=== PATIENT | female | born 1945 | race Caucasian/White ===

== ENCOUNTER 2019-02-10 02:21 | Observation (INO) | payer MEDICARE ==
[2019-02-10 02:54] LABS: #Basophils 0.1 thou/uL (0.0-0.2); #Eosinphils 0.1 thou/uL (0.0-0.7); #Lymphocytes 1.5 thou/uL (1.20-3.40); #Monocytes 0.5 thou/uL (0.11-0.59); #Neutrophils 3.9 thou/uL (1.40-6.50); %Basophils 1.4 % (0.0-1.0); %Eosinophils 2.3 % (0.0-10.0); %Lymphocytes 24.1 % (21.0-51.0); %Monocytes 8.2 % (0.0-10.0); %Neutrophils 63.9 % (42.0-75.0); Hemoglobin 14.9 g/dL (12.0-16.0); Mean Corpuscular HGB CONC 32.8 g/dL (32.0-36.0); Mean Corpuscular Hemoglobin 29.3 pg (27.0-31.0); Mean Corpuscular Volume 89.3 fL (78.0-98.0); Platelet Count 207 thou/uL (130-400); RBC Distribution Width 12.4 % (11.5-14.5); Red Blood Cell (RBC) Count 5.08 mill/uL (4.20-5.40); White Blood Cell (WBC) Count 6.1 thou/uL (4.8-10.8)
[2019-02-10] MEDS ORDERED: Aspirin Chewable 81 MG TAB ONE (03:03)
[2019-02-10] MEDS ORDERED: Nitroglycerin 0.4 MG TAB 1 EACH ONE (03:03)
[2019-02-10 03:19] LABS: ALT (SGPT) 16 U/L (8-55); AST (SGOT) 17 U/L (5-34); Albumin 4.7 g/dL (3.4-4.8); Alkaline Phosphatase 74 U/L (40-150); Anion Gap 14 mmol/L (10-20); BUN (Urea Nitrogen) 14 mg/dL (9.8-20.1); Bilirubin, Total 0.6 mg/dL (0.2-1.2); CK (CPK) 153 U/L (29-168); Calc. Creatinine Clearance 0 mL/min (70-130); Calcium 10.9 mg/dL (7.8-10.44); Carbon Dioxide 27 mmol/L (23-31); Chloride 105 mmol/L (98-107); Estimated GFR-MDRD 66; Globulin 2.5 g/dL (2.4-3.5); Glucose 129 mg/dL (83-110); Lipase 59 U/L (8-78); Potassium 3.8 mmol/L (3.5-5.1); Protein, Total 7.2 g/dL (6.0-8.3); Sodium 142 mmol/L (136-145)
[2019-02-10] MEDS ORDERED: Acetaminophen 325 MG TAB ONE (05:55)
[2019-02-10 06:24] LABS: Troponin I Less than 0.010 ng/mL (< 0.028)
--- NOTE | 2019-02-10 07:36 | RAD ---
XR Chest 1 View Portable History: [Chest pain] Comparison: None. Findings: There is be a retrocardiac density likely a sliding hiatal hernia. No pneumothorax. Lungs a re hyperinflated. No focal consolidation or effusion. No acute osseous abnormality. Impression: Findings suggestive of a large sliding hiatal hernia.
[2019-02-10] MEDS ORDERED: HYDROcodone/Acetaminophen 7.5/325 mg Tablet PO PRN (07:40)
[2019-02-10] MEDS ORDERED: Ondansetron ODT 4 MG TAB PO PRN (07:40)
[2019-02-10] MEDS ORDERED: Acetaminophen 325 MG TAB PO PRN (07:40)
--- NOTE | 2019-02-10 08:25 | HP ---
HISTORY OF PRESENT ILLNESS: [facility] call admission for [facility]. The patient referred to the [facility]ist [facility] by [facility] for chest pain. The patient started having chest pain 4-5 days ago. She is vague on a description. She says it is just a bad hurt. It is worse at night. It has been coming and going. She gives no radiation except possibly some left shoulder pain with it. No shortness of breath. No sweats. She definitely does not give me a history of pressure chest pain. She was seen and evaluated in the emergency room and referred. PAST MEDICAL HISTORY: She has a past medical history of hypertension. She takes amlodipine 5 mg twice a day. ALLERGIES: SHE HAS NO KNOWN DRUG ALLERGIES. PAST SURGICAL HISTORY: Hysterectomy, cholecystectomy, appendectomy, and ovarian cyst surgery at about 21 years of age. FAMILY HISTORY: Her mother had coronary artery disease late in life over 80s. Father of pancreatic cancer. SOCIAL HISTORY: , at bedside, DNAR status, confirmed by who is the next of kin for decision making. No tobacco. Occasional wine. REVIEW OF SYSTEMS: GENERAL: No headaches, dizziness or fainting. EYES: No double vision, blurred vision or flashing lights. EAR AND NOSE AND THROAT: No ear pain or drainage. She states she often hears her heart beating in her ear at night and when she gets up and checks, her blood pressure is elevated. No nose bleeding. No trouble swallowing. CARDIAC: No pressure chest pain. No orthopnea. RESPIRATION: No cough, wheezing or asthma. GASTROINTESTINAL: She states she had dry heaves last night. GENITOURINARY: No hematuria or dysuria. MUSCULOSKELETAL: She states she has occasional leg swelling. She has no history of pain. NEUROLOGICAL: No strokes, seizures, or focal weakness. PSYCHIATRIC: No anxiety or depression. SKIN: She states she bruises easily. No significant rash. HEME/LYMPH: No tender or swollen lymph nodes in axilla, inguinal or cervical area. PHYSICAL EXAMINATION: GENERAL: She is alert, pleasant, cooperative lady in no distress. VITAL SIGNS: Blood pressure 132/70, pulse 68, respirations 18. She rates her pain as 5-10 while she has been here, room air saturations are 98%. HEENT: Examination of her head, eyes, ears, nose, and throat reveals pupils are equal, round, and reactive to light. Extraocular movements are intact. Sclerae are white. Tympanic membranes clear. Nose clear. Throat is clear. Dental hygiene is adequate. NECK: Supple without jugular venous distention, adenopathy or thyromegaly. CHEST: Clear to auscultation and percussion. HEART: Regular rate and rhythm. First and second heart sounds are clear. There are no murmurs or gallops. ABDOMEN: Soft. Bowel sounds are normal. No hepatosplenomegaly. No masses. No rebound. Abdominal exam was mildly tender in the left upper quadrant. No other changes. EXTREMITIES: Reveal no cyanosis, clubbing, or edema. PULSES: Carotid, radial, femoral, and dorsalis pedis pulses intact. SKIN: Warm and dry. She has an area just to the left of her spine about T6. It is about 1 cm2 erythematous area that is remarkably tender to light touch. There is no other significant lesion or tenderness in that particular dermatome. LYMPHATIC SURVEY: No tender or swollen lymph nodes in axilla, inguinal or cervical area. No petechial hemorrhages on her fingernails or mucous membranes. NEUROLOGICAL: Cranial nerves 2 through 12 are intact. Deep tendon reflexes grossly symmetric. DIAGNOSTIC STUDIES: EKG; normal reviewed by me. LABORATORY DATA: Comprehensive metabolic profile shows a blood sugar of 129, calcium of 10.9, otherwise normal. Cardiac enzymes normal x2. CBC is unremarkable. Chest x-ray; no cardiomegaly, CHF or infiltrate reviewed by me. ADMITTING DIAGNOSES: Atypical chest pain and hypertension. PLAN: Serial enzymes, exercise Cardiolite stress test. The patient has been given aspirin. I am suspicious #1 herpes zoster in the left about T6 and we will start her on Valtrex 1 g t.i.d. The other significant consideration is gastroesophageal reflux and esophagitis and we will start her on Protonix 40 mg a day. We will review as data becomes available. Job ID: [id number]
[2019-02-10] MEDS ORDERED: ADENOSINE 60 MG/20 ML VIAL ONE (11:38)
[2019-02-10] MEDS: valACYclovir 500 MG TAB PO SCH ×2 (12:06→14:54)
--- NOTE | 2019-02-10 12:18 | NM ---
MYOCARDIAL PERFUSION EVALUATION: Indication: History of chest pain. Radiopharmaceutical: 27.7 mCi Technetium 99M Sestamibi IV with stress and 9.4 mCi Technetium 99M Sest amibi with rest. Comparison: None. FINDINGS: When comparing the rest and stress images there is no reversible myocardial perfusion abnormality. LV EF is estimated at 82%. There is normal wall motion and thickening. IMPRESSION: Normal myocardial perfusion evaluation. POS: BRANDO
--- NOTE | 2019-02-10 15:10 | DIS ---
DATE OF ADMISSION: 02/10/2019 DATE OF DISCHARGE: 02/10/2019 PRIMARY CARE PHYSICIAN: No PCP. The patient has been advised that she needs one. DISPOSITION: Discharged home. FINAL DIAGNOSES: Gastroesophageal reflux disease, herpes zoster, left T6-7 chest pain, and hypertension. DISCHARGE MEDICINES: 1. Usual antihypertensive medicine. 2. Omeprazole 20 mg p.o. q.a.m. 3. Valtrex 1 g three times a day for 7 days. ALLERGIES: NONE. PENDING AT TIME OF DISCHARGE: Nothing. CODE STATUS: Full. HOSPITAL COURSE: The patient was referred to the [facility] for atypical chest pain, worse at night, lasted hours. Serial enzymes were normal. Nuclear medicine cardiac stress test was normal. The patient was noted to have some early lesions on her paraspinous area in the back. They were very sensitive to touch. They were suspicious for shingles. She was started on Valtrex. Remainder of her studies is unimpressive. No consults were obtained. No procedures were done. She has been advised to take omeprazole 20 mg p.o. every morning. She had been given the prescription for the Valtrex, been told to take her usual antihypertensive medicines. She has been told she really needs to obtain a PCP for continuing medical care and to be seen in 1 to 2 weeks if possible. Job ID: [id number]
--- NOTE | 2019-03-18 13:42 | STRESS ---
Acquisition Time: 2019-02-10 10:42:04 Total Exercise Time: 00:04:00 Test Indications: CHEST PAIN Medications: Protocol: ADENOSINE Max HR: 101 BPM 68% of Pred: 148 BPM Max BP: 136/074 mmHG Max Work Load: 1.0 METS THE PATIENT WAS INJECTED WITH ADENOSINE. SHE DID NOT DEVELOP CHEST PAIN. THERE WAS NO SIGNIFICANT ST DEPRESSION. AWAIT NUCLEAR IMAGES FOR DEFINITIVE DIAGNOSIS. Confirmed by HARIS TEJEDA ([id number]), index editor NITHIN CONTRERAS ([id number]) on 03/18/2019 1:41:45 PM Referred By: MD Altaf VILCHIS Confirmed By:HARIS TEJEDA
== END 2019-02-10 14:59 | disposition home or self-care (01) ==
LOC: ERS 02:21 → ERHOLD 04:24
PROVIDERS: ADMIT Internal Medicine; ATTEND Internal Medicine
DX: R07.89 Other chest pain (principal); B02.9 Zoster without complications; K21.9 Gastro-esophageal reflux disease without esophagitis; I10 Essential (primary) hypertension; Z79.899 Other long term (current) drug therapy; Z66 Do not resuscitate
CPT/HCPCS: 71045; 78452; 80053; 82550; 83690; 84484 ×2; 85025; 93005; 93017; 94760; 99285; A9500; G0378; 36415; J0153

== ENCOUNTER 2019-05-18 07:39 | Outpatient (CLI) | payer MEDICARE ==
--- NOTE | 2019-05-18 08:15 | MMO ---
Bilateral MAMMO Bilat Screen [facility]. CLINICAL HISTORY: Patient is 73 years old and is seen for screening. The patient has no family history of breast cancer. The patient has no personal history of cancer. The patient has a history of right cyst aspiration in years ago. VIEWS: The views performed were: bilateral craniocaudal with tomosynthesis and bilateral mediolateral oblique with tomosynthesis. MAMMOGRAM FINDINGS: There are scattered fibroglandular densities. Benign calcifications are noted bilaterally. There are no suspicious masses, suspicious calcifications, or new areas of architectural distortion. IMPRESSION: THERE IS NO MAMMOGRAPHIC EVIDENCE OF MALIGNANCY. A ROUTINE FOLLOW-UP MAMMOGRAM IN 1 YEAR IS RECOMMENDED. THE RESULTS OF THIS EXAM WERE SENT TO THE PATIENT. ACR BI-RADS Category 2 - Benign finding MAMMOGRAPHY NOTE: 1. A negative mammogram report should not delay a biopsy if a dominant of clinically suspicious mass is present. 2. Approximately 10% to 15% of breast cancers are not detected by mammography. 3. Adenosis and dense breasts may obscure an underlying neoplasm. Reported by: JESSICA LOPEZ MD Electonically Signed: [id number]
== END 2019-05-18 07:40 | disposition home or self-care (01) ==
LOC: BICMAMMO 07:39
PROVIDERS: ATTEND Family Medicine
DX: Z12.31 Encounter for screening mammogram for malignant neoplasm of breast (principal)
CPT/HCPCS: 77063; 77067